=== PATIENT | male | born 1995 | race Caucasian/White ===

== ENCOUNTER 2019-09-20 19:08 | Emergency (ER) | payer BC, OTHER ==
[~2019-09-20] VITALS: Ht 188 cm; Wt 101.8 kg
[2019-09-20 19:09] VITALS: BP 136/71
[2019-09-20] MEDS ORDERED: LEXA1TAB PO (19:22)
--- NOTE | 2019-09-20 19:53 | REP ---
Clinical: Trauma. Technique: AP, lateral, bilateral oblique views of the left ankle. Comparison: 08/06/2013. Findings: Postsurgical changes at the distal fibula. No acute fracture dislocation. No significant swelling. Ankle mortise intact. Impression: No acute fracture or dislocation. Electronically Signed by Ramon Reich MD 09/20/2019 07:45 P
[2019-09-20] MEDS ORDERED: PRED20TA PO (20:15)
== END 2019-09-20 20:34 | disposition home or self-care (01) ==
LOC: M ED 19:08
DX: M25.572 Pain in left ankle and joints of left foot (principal); F33.9 Major depressive disorder, recurrent, unspecified; Z79.899 Other long term (current) drug therapy

== ENCOUNTER 2021-06-18 22:45 | Emergency (ER) | payer OTHER ==
[~2021-06-18] VITALS: Ht 188 cm; Wt 112.7 kg
[~2021-06-18 22:45] MED LIST: LEXA1TAB PO; PRED20TA PO
[2021-06-18 22:47] VITALS: BP 136/84
[2021-06-18] MEDS ORDERED: TRAM50TA2 PO (22:53)
[2021-06-18] MEDS ORDERED: CELE1CAP4 PO (22:53)
[2021-06-18] MEDS ORDERED: EXCETAB33 PO (22:55)
== END 2021-06-19 04:43 | disposition left against medical advice (07) ==
LOC: M ED 22:45
DX: Z53.29 Procedure and treatment not carried out because of patient's decision for other reasons (principal)

== ENCOUNTER → 2022-12-31 | Outpatient (CLI) | payer OTHER ==
[~2022-12-31] MED LIST changes: +CELE1CAP4 PO; +EXCETAB32 PO; +TRAM50TA2 PO
[2022-12-31 16:52] LABS: BASO % 0.5 % (0.0-1.0); EOS # 0.1 10^3/uL (0.0-0.5); EOS % 0.8 % (0.0-3.0); HEMATOCRIT 51.2 % (42.0-52.0); HEMOGLOBIN 16.6 g/dl (13.5-17.5); LYMPH # 1.3 10^3/uL (1.5-5.0); LYMPH % 16.3 % (24.0-44.0); MEAN CORPUSCULAR HGB CONC 32.4 g/dl (32.0-36.5); MEAN CORPUSCULAR VOLUME 89.4 fl (80.0-96.0); MONO # 0.8 10^3/uL (0.0-0.8); MONO % 9.6 % (2.0-8.0); NEUTROPHILS # 5.6 10^3/uL (1.5-8.5); NEUTROPHILS % 72.3 % (36.0-66.0); PLATELET COUNT, AUTOMATED 285 10^3/uL (150-450); RED BLOOD COUNT 5.73 10^6/uL (4.30-6.10); WHITE BLOOD COUNT 7.8 10^3/uL (4.0-10.0)
[2022-12-31 17:02] LABS: LIPASE 33 U/L (12-53)
[2022-12-31 17:03] LABS: ALBUMIN 4.4 G/DL (3.2-5.2); ALKALINE PHOSPHATASE 67 U/L (46-116); ALT/SGPT 25 U/L (7.0-40); AMYLASE 50 U/L (30-118); AST/SGOT 20 U/L (<34); BILIRUBIN,TOTAL 1.9 MG/DL (0.3-1.2); BLOOD UREA NITROGEN 14 MG/DL (9-23); CALCIUM LEVEL 9.5 MG/DL (8.5-10.1); CARBON DIOXIDE LEVEL 31 MMOL/L (20-31); CHLORIDE LEVEL 103 MMOL/L (98-107); CREATININE FOR GFR 1.14 MG/DL (0.70-1.30); GLOMERULAR FILTRATION RATE > 60.0 (>60); GLUCOSE, FASTING 87 MG/DL (60-100); POTASSIUM SERUM 4.1 MMOL/L (3.5-5.1); SODIUM LEVEL 141 MMOL/L (136-145); TOTAL PROTEIN 7.4 G/DL (5.7-8.2)
[2023-01-02 15:10] LABS: H PYLORI SERUM QUANT IGA <9.0 units (0.0-8.9); H PYLORI SERUM QUANT IGM <9.0 units (0.0-8.9); H PYLORI SERUM QUANT IgG ABY 0.17 (0.00-0.79)
== END ==
LOC: M WUC 12:17
PROVIDERS: ATTEND Registered Nurse
DX: R10.84 Generalized abdominal pain (principal); K21.9 Gastro-esophageal reflux disease without esophagitis

== ENCOUNTER → 2023-01-18 | Outpatient (CLI) | payer OTHER, SELFPAY ==
[~2023-01-18] MED LIST changes: +ISOVUE-370 76% 100ML VIAL As Ordered ONE
== END ==
LOC: M RAD 08:01
PROVIDERS: ATTEND Surgery
DX: R10.13 Epigastric pain (principal); D17.1 Benign lipomatous neoplasm of skin and subcutaneous tissue of trunk
CPT/HCPCS: 74174; Q9967

== ENCOUNTER 2023-02-17 12:03 | Day surgery (SDC) | payer OTHER ==
[~2023-02-17] VITALS: Ht 188 cm; Wt 101.2 kg
[~2023-02-17 12:03] MED LIST changes: +IBUP200C89 PO; -ISOVUE-370 76% 100ML VIAL As Ordered ONE; +NS 1,000 ML IV ONE; +OMEP40CA4 PO; +PROA1AER2 INH; +[UNRECOGNIZED DRUG - REMARK]
[2023-02-17] MEDS ORDERED: propofoL 200 MG/20 ML VIAL As Ordered ONE ×3 (13:57→14:14)
[2023-02-17] MEDS ORDERED: fentaNYL 100 MCG/2 ML INJECTION As Ordered ONE (13:58)
[2023-02-17 14:58] VITALS: BP 119/86
== END 2023-02-17 15:12 | disposition home or self-care (01) ==
LOC: M OPP 12:03
PROVIDERS: ATTEND Surgery
DX: K29.70 Gastritis, unspecified, without bleeding (principal); K22.89 Other specified disease of esophagus; R10.84 Generalized abdominal pain; Z79.1 Long term (current) use of non-steroidal anti-inflammatories (NSAID); Z79.51 Long term (current) use of inhaled steroids
CPT/HCPCS: 43239; 45378; 88305; J3010

== ENCOUNTER → 2023-08-31 | Outpatient (CLI) | payer BC ==
[~2023-08-31] MED LIST changes: -NS 1,000 ML IV ONE
== END ==
LOC: M RAD 16:02
PROVIDERS: ATTEND Registered Nurse
DX: N50.819 Testicular pain, unspecified (principal)

== ENCOUNTER → 2024-04-26 | Outpatient (CLI) | payer OTHER | LOC: M SLEEP 20:00 | PROVIDERS: ATTEND Internal Medicine | DX: R06.83 Snoring (principal) ==

== ENCOUNTER → 2025-08-14 | Outpatient (CLI) | payer OTHER ==
[2025-08-14 12:46] LABS: BASO # 0.1 10^3/uL (0.0-0.2); BASO % 0.8 % (0.0-1.0); EOS # 0.1 10^3/uL (0.0-0.5); EOS % 1.5 % (0.0-3.0); LYMPH # 1.6 10^3/uL (1.5-5.0); LYMPH % 23.3 % (24.0-44.0); MONO # 0.7 10^3/uL (0.0-0.8); MONO % 9.9 % (2.0-8.0); NEUTROPHILS # 4.2 10^3/uL (1.5-8.5); NEUTROPHILS % 63.3 % (36.0-66.0); PLATELET COUNT, AUTOMATED 251 10^3/uL (150-450)
[2025-08-14 12:49] LABS: FREE T4 1.14 NG/DL (0.89-1.76)
[2025-08-14 12:50] LABS: ALT/SGPT 60 U/L (7.0-40); AST/SGOT 26 U/L (<34); CALCIUM LEVEL 9.5 MG/DL (8.5-10.1); CARBON DIOXIDE LEVEL 30 MMOL/L (20-31); CHLORIDE LEVEL 103 MMOL/L (98-107); CHOLESTEROL LEVEL 223 MG/DL (<200); CHOLESTEROL RISK RATIO 5.12 (<5); CREATININE FOR GFR 1.01 MG/DL (0.70-1.30); GLOMERULAR FILTRATION RATE > 90.0 (>60); LDL CHOLESTEROL 149.3 MG/DL (<100); NON-HDL-C 179.5 MG/DL; POTASSIUM SERUM 4.7 MMOL/L (3.5-5.1); SODIUM LEVEL 142 MMOL/L (136-145); TRIGLYCERIDES LEVEL 151 MG/DL (<150)
[2025-08-14 13:06] LABS: ESTIMATED AVERAGE GLUCOSE 108.0 MG/DL (60-110)
== END ==
LOC: M WUC 09:33
PROVIDERS: ATTEND Registered Nurse
DX: Z00.00 Encounter for general adult medical examination without abnormal findings (principal); R53.83 Other fatigue